=== PATIENT | male | born 1945 | race Caucasian/White ===

== ENCOUNTER → 2019-03-31 | Outpatient (CLI) | payer MEDICARE ==
[~2019-03-31] MED LIST: AMLO-150 PO; LISI40TA PO; SIMV20TA19 PO
[2019-03-31 10:50] LABS: ALANINE AMINOTRANSFERASE 20 U/L (12-78); ALBUMIN 3.9 g/dL (3.4-5.0); ANION GAP 5 mmol/L (5-15); CALCIUM 8.9 mg/dL (8.5-10.1); CHLORIDE 109 mmol/L (98-107)
[2019-03-31 10:53] LABS: ALKALINE PHOSPHATASE 79 U/L (45-117); BILIRUBIN,TOTAL 0.5 mg/dL (0.2-1.0); TOTAL PROTEIN 7.8 g/dL (6.4-8.2)
== END | disposition home or self-care (01) ==
LOC: STAR 09:43
PROVIDERS: ATTEND Surgery
DX: Z01.818 Encounter for other preprocedural examination (principal)
CPT/HCPCS: 36415; 80053; 93005

== ENCOUNTER → 2019-08-25 | Outpatient (CLI) | payer MEDICARE ==
[2019-08-25 12:16] LABS: CALCIUM 8.8 mg/dL (8.5-10.1); CHLORIDE 110 mmol/L (98-107)
[2019-08-25 12:21] LABS: ALANINE AMINOTRANSFERASE 30 U/L (12-78); ALBUMIN 3.9 g/dL (3.4-5.0); ALKALINE PHOSPHATASE 76 U/L (45-117); ANION GAP 5 mmol/L (5-15); BILIRUBIN,TOTAL 0.6 mg/dL (0.2-1.0); CREATININE 0.97 mg/dL (0.7-1.3); TOTAL PROTEIN 7.7 g/dL (6.4-8.2)
== END | disposition home or self-care (01) ==
LOC: STAR 10:36
PROVIDERS: ATTEND Student in an Organized Health Care Education/Training Program
DX: Z01.818 Encounter for other preprocedural examination (principal); K43.2 Incisional hernia without obstruction or gangrene; I44.0 Atrioventricular block, first degree; I45.10 Unspecified right bundle-branch block; R94.31 Abnormal electrocardiogram [ECG] [EKG]
CPT/HCPCS: 36415; 80053; 93005

== ENCOUNTER 2019-08-29 05:34 | Day surgery (SDC) | payer MEDICARE ==
[~2019-08-29] VITALS: Ht 177.8 cm; Wt 94.0 kg
[2019-08-29] MEDS ORDERED: LACTATED RINGERS 1,000 ML IV SCH (06:08)
[2019-08-29] MEDS ORDERED: CHLORHEXIDINE 15 ML UDC MM ONE (06:30)
[2019-08-29] MEDS ORDERED: BUPIVACAINE/PF 0.5% ONE (06:59)
[2019-08-29] MEDS ORDERED: HYDROcodone/APAP 7.5-325MG/15ML UDC PO PRN (07:00)
[2019-08-29] MEDS ORDERED: METOCLOPRAMIDE 5 MG/ML, 2ML IVPush PRN (07:00)
[2019-08-29] MEDS ORDERED: ALBUTEROL/IPRATROPIUM 2.5MG/0.5MG, 3 ML NPPB PRN (07:00)
[2019-08-29] MEDS ORDERED: ONDANSETRON 2MG/ML, 2ML IVPush PRN (07:00)
[2019-08-29] MEDS ORDERED: EPHEDRINE 50 MG/ML, 1ML IM PRN (07:00)
[2019-08-29] MEDS ORDERED: EPHEDRINE 50 MG/ML, 1ML IVPush PRN (07:00)
[2019-08-29] MEDS ORDERED: HALOPERIDOL 5 MG/ML IV PRN (07:00)
[2019-08-29] MEDS ORDERED: DIPHENHYDRAMINE 50 MG/ML, 1ML IVPush PRN (07:00)
[2019-08-29] MEDS ORDERED: KETOROLAC 30 MG/1 ML IV PRN (07:00)
[2019-08-29] MEDS ORDERED: MIDAZOLAM 1 MG/ML, 2ML IV PRN (07:00)
[2019-08-29] MEDS ORDERED: LORazepam 2 MG/ML, 1ML IVPush PRN (07:00)
[2019-08-29] MEDS ORDERED: ACETAMINOPHEN 325 MG TABLET PO PRN (07:00)
[2019-08-29] MEDS ORDERED: MEPERIDINE/PF 25MG/0.5ML IVPush PRN (07:00)
[2019-08-29] MEDS ORDERED: EPINEPHRINE 1 MG/ML, 1ML ONE (07:00)
[2019-08-29] MEDS ORDERED: OXYcodone 5 MG/5 ML ORAL.SOL UDC PO PRN (07:00)
[2019-08-29] MEDS ORDERED: HYDROmorphone 1 MG/ML, 1ML INJ IVPush PRN (07:00)
[2019-08-29] MEDS ORDERED: hydrALAzine 20 MG/ML, 1ML IV PRN (07:00)
[2019-08-29] MEDS ORDERED: DIAZEPAM 5 MG/ML, 2ML IVPush PRN (07:00)
[2019-08-29] MEDS ORDERED: FENTANYL PF 100 MCG/2ML IV PRN (07:00)
[2019-08-29] MEDS ORDERED: LABETALOL 5MG/ML, 20ML IV PRN (07:00)
[2019-08-29] MEDS ORDERED: LIDOCAINE 1%, 20ML ONE (07:08)
[2019-08-29] MEDS ORDERED: LABETALOL 5MG/ML, 20ML ONE (07:08)
[2019-08-29] MEDS ORDERED: MAGNESIUM SULFATE 1 GM/2 ML ONE (07:08)
[2019-08-29] MEDS ORDERED: ROCURONIUM 10MG/ML,5ML ONE (07:19)
[2019-08-29] MEDS ORDERED: DEXAMETHASONE 4 MG/ML, 1ML ONE (07:19)
[2019-08-29] MEDS ORDERED: PROPOFOL 10 MG/ML, 20ML ONE (07:19)
[2019-08-29] MEDS ORDERED: LIDOCAINE-MPF 2% ,5ML ONE (07:19)
[2019-08-29] MEDS ORDERED: GLYCOPYRROLATE 0.2MG/1ML, 5ML ONE (07:19)
[2019-08-29] MEDS ORDERED: MIDAZOLAM 1 MG/ML, 2ML ONE (07:20)
[2019-08-29] MEDS ORDERED: FENTANYL PF 250 MCG/5ML ONE (07:20)
[2019-08-29] MEDS ORDERED: CEFAZOLIN 1,000 MG ONE (08:40)
== END 2019-08-29 12:25 | disposition home or self-care (01) ==
LOC: OUT 05:34
PROVIDERS: ATTEND Student in an Organized Health Care Education/Training Program
DX: K43.0 Incisional hernia with obstruction, without gangrene (principal); Z11.59 Encounter for screening for other viral diseases; I10 Essential (primary) hypertension; E78.5 Hyperlipidemia, unspecified; E66.9 Obesity, unspecified; Z68.30 Body mass index [BMI] 30.0-30.9, adult; Z79.899 Other long term (current) drug therapy; Z85.828 Personal history of other malignant neoplasm of skin; Z87.891 Personal history of nicotine dependence; Z98.52 Vasectomy status; Z98.890 Other specified postprocedural states
CPT/HCPCS: 36415; 49655; 87635; C1781; J0171; J0690; J1100; J2250; J2704; J3010; J3475; J7120